=== PATIENT | male | born 1985 | race Caucasian/White ===

== ENCOUNTER 2018-09-24 16:22 | Emergency (ER) | payer OTHER ==
[~2018-09-24] VITALS: Ht 208.3 cm; Wt 145.2 kg
[2018-09-24] MEDS ORDERED: NAPROXEN250 MG PO (16:51)
[2018-09-24] MEDS ORDERED: ACETAMINOPHEN-1 EAC1 PO (19:47)
[2018-09-24] MEDS ORDERED: CLINDAMYCIN HC300 MG PO (19:47)
== END 2018-09-24 20:00 | disposition home or self-care (01) ==
LOC: ED 16:22
DX: K08.89 Other specified disorders of teeth and supporting structures (principal); F17.200 Nicotine dependence, unspecified, uncomplicated; Z88.0 Allergy status to penicillin
CPT/HCPCS: 99282

== ENCOUNTER 2019-10-11 02:56 | Emergency (ER) | payer OTHER ==
[~2019-10-11] VITALS: Ht 208.3 cm; Wt 151.9 kg
[~2019-10-11 02:56] MED LIST: ACETAMINOPHEN-1 EAC1 PO; CLINDAMYCIN HC300 MG PO; NAPROXEN250 MG PO
[2019-10-11] MEDS ORDERED: CLINDAMYCIN HC300 MG PO (03:28)
== END 2019-10-11 03:41 | disposition home or self-care (01) ==
LOC: ED 02:56
DX: K02.9 Dental caries, unspecified (principal); G89.29 Other chronic pain; F17.200 Nicotine dependence, unspecified, uncomplicated; Z88.0 Allergy status to penicillin
CPT/HCPCS: 99282